=== PATIENT | female | born 1995 | race Caucasian/White ===

== ENCOUNTER 2021-08-25 08:30 | Emergency (ER) | payer SELFPAY ==
[~2021-08-25] VITALS: Ht 149.8 cm; Wt 49.8 kg
[~2021-08-25 08:30] MED LIST: AMOX500C2 PO; FERR-84 PO; LORA10TA7 PO; PNV91TAB3 PO
--- NOTE | 2021-08-25 10:33 | Diagnostic Imaging Report ---
INDICATION: Shortness of breath COMPARISON: None. FINDINGS: Frontal view of the chest demonstrates clear lungs bilaterally. The heart size is normal. There is no pneumothorax. Osseous structures are normal. IMPRESSION: No acute findings. Normal chest. Dictated by: Dictated on workstation # [id number]
--- NOTE | 2021-08-25 11:00 | ED General ---
General Chief Complaint: COVID19 Suspect/Confirmed Stated Complaint: FEVER,COUGH CHILLS,FATIGUE Nursing Triage Note: pt amb to rm 10 with complaint of fever, chills, cough, nausea that started monday. Source of Information: Patient Exam Limitations: No Limitations History of Present Illness Date Seen by Provider: Aug 25, 2021 Time Seen by Provider: 09:10 Initial Comments This 25-year-old young lady presents to the emergency room with complaints of flulike symptoms including fever, cough, chills, chest discomfort, nausea, and myalgias. She has no known COVID-19 exposures. She has not been vaccinated for COVID-19 and she denies prior infection. Allergies and Home Medications Allergies Coded Allergies: No Known Drug Allergies (Unverified , 03/18/16) Patient Home Medication List Home Medication List Reviewed: Yes Ferrous Sulfate (Iron) 325 Mg Tablet, 325 MG PO DAILY PRN for ABDOMINAL PAIN, (Reported) Entered as Reported by: MARANDA GARCIA on 09/30/16 0248 Pnv95/Ferrous Fumarate/FA ( Caplet) 1 Each Tablet, 1 EACH PO DAILY PRN for ABDOMINAL PAIN, (Reported) Entered as Reported by: MARANDA GARCIA on 09/30/16 0247 Review of Systems Review of Systems Constitutional: see HPI EENTM: no symptoms reported Respiratory: see HPI Cardiovascular: no symptoms reported Gastrointestinal: see HPI Genitourinary: no symptoms reported : No Musculoskeletal: see HPI Skin: no symptoms reported Psychiatric/Neurological: No Symptoms Reported Hematologic/Lymphatic: No Symptoms Reported Immunological/Allergic: no symptoms reported Past Cyiewya-Osklns-Ippvow Hx Patient Social History Tobacco Use?: No Use of E-Cig and/or Vaping dev: No Substance use?: No Alcohol Use?: Yes Alcohol Frequency: Once in a while Pt feels they are or have been: No Immunizations Up To Date Tetanus Booster (TDap): Less than 5yrs First/Initial COVID19 Vaccinat: no Second COVID19 Vaccination Jaya: no Seasonal Allergies Seasonal Allergies: No Past Medical History Surgeries: Yes ("Plastic plate in head") Cardiac: No Neurological: No : No Last Menstrual Period: Aug 17, 2021 Reproductive Disorders: Yes Female Reproductive Disorders: Polycystic Ovarian Dis Sexually Transmitted Disease: No HIV/AIDS: No Gastrointestinal: No Musculoskeletal: No Endocrine: No HEENT: No Cancer: No Psychosocial: Yes Depression Adverse Reaction/Blood Tranf: No Family Medical History Patient reports no known family medical history. Physical Exam Vital Signs Vital Signs - First Documented 08/25/21 08:48 Temp 37.0 Pulse 85 Resp 20 B/P (MAP) 101/69 (80) Pulse Ox 96 O2 Delivery Room Air Capillary Refill : Less Than 3 Seconds Height, Weight, BMI Height: 4'11.00" Weight: 124lbs. 4.0oz. 56.837703dl; 22.00 BMI Method:Stated General Appearance: No Apparent Distress, WD/WN HEENT: PERRL/EOMI, TMs Normal, Normal ENT Inspection, Pharynx Normal Neck: Normal Inspection Respiratory: Lungs Clear, Normal Breath Sounds, No Accessory Muscle Use, No Respiratory Distress Cardiovascular: Regular Rate, Rhythm, No Edema, No Murmur Gastrointestinal: Normal Bowel Sounds, Non Tender, Soft Extremity: Normal Inspection, No Calf Tenderness, No Pedal Edema Neurologic/Psychiatric: Alert, Oriented x3, No Motor/Sensory Deficits, Normal Mood/Affect, drawing in hand II-XII Norm as Tested Skin: Normal Color, Warm/Dry Progress/Results/Core Measures Suspected Sepsis SIRS Temperature: Pulse: 85 Respiratory Rate: 20 Blood Pressure 101 /69 Mean: 80 Results/Orders Lab Results Laboratory Tests Test 08/25/21 08:50 Range/Units Coronavirus (COVID-19)(PCR) Positive H Negative Influenza Type A Antigen NEGATIVE NEGATIVE Influenza Type B Antigen NEGATIVE NEGATIVE My Orders Orders - YANDEL RICH MD Coronavirus Sars-Cov-2 So 2019 (08/25/21 09:10) Influenza A & B Antigens (08/25/21 09:10) Chest 1 View, Ap/Pa Only (08/25/21 10:16) Vital Signs/I&O 08/25/21 08/25/21 08:48 11:15 Temp 37.0 37.0 Pulse 85 76 Resp 20 19 B/P (MAP) 101/69 (80) 105/72 Pulse Ox 96 96 O2 Delivery Room Air Room Air Capillary Refill : Less Than 3 Seconds Blood Pressure Mean: 80 Progress Note : Progress Note Vital signs are stable. Chest x-ray was unremarkable. Influenza screening was negative. Send out COVID-19 test was pending at discharge. Quarantine instructions and other instructions reviewed with patient. Departure Impression Primary Impression: Person under investigation for COVID-19 Additional Impression: Flu-like symptoms Disposition: 01 HOME, SELF-CARE Condition: Improved Departure-Patient Inst. Decision time for Depature: 10:59 Patient Instructions: COVID-19 ED, Viral Syndrome (DC) Add. Discharge Instructions: You are currently a person under investigation for COVID-19. Please remain in quarantine until the results of your COVID-19 test is known. These test results usually results in about 24 hours. For fever or discomfort you may take ibuprofen up to 400 mg every 6 hours as needed and/or Tylenol (acetaminophen) up to 650 mg every 6 hours as needed. Drink plenty of clear liquids to stay well-hydrated. Call with questions or concerns. Return to the ER if you have worsening symptoms. All discharge instructions reviewed with patient and/or family. Voiced understanding. YANDEL RICH MD Aug 25, 2021 11:00
[2021-08-25 11:15] VITALS: BP 105/72
== END 2021-08-25 11:15 | disposition home or self-care (01) ==
LOC: EDUNIT# 08:30 → ER 08:32
DX: U07.1 COVID-19 (principal)
CPT/HCPCS: 71045; 87635; 87804

== ENCOUNTER 2022-08-11 08:01 | Emergency (ER) | payer SELFPAY ==
[~2022-08-11] VITALS: Ht 150 cm; Wt 49.0 kg
[2022-08-11] MEDS ORDERED: IBUPROFEN 600 MG (MOTRIN) TAB PO ONE (08:45)
[2022-08-11 08:55] LABS: BILIRUBIN,URINE NEGATIVE (NEGATIVE); CLARITY,URINE CLOUDY; COLOR,URINE ORANGE; GLUCOSE, URINE (UA) NEGATIVE (NEGATIVE); KETONES,URINE NEGATIVE (NEGATIVE); LEUKOCYTE ESTERASE ,URINE NEGATIVE (NEGATIVE); NITRITE,URINE NEGATIVE (NEGATIVE); PROTEIN,URINE NEGATIVE (NEGATIVE)
--- NOTE | 2022-08-11 09:11 | ED GU-Female ---
General Chief Complaint: - Reproductive Stated Complaint: VAGINAL BLEEDING / CRAMPING Nursing Triage Note: pt ambulatory to room. pt states her last LMP was 07/27 and started bleeding again 1 week ago and it has not stopped. pt states she also began having lower abdomen cramping yesterday morning. pt states she was going to go to the clinic this morning, but got up and "felt faint" so she came here to get checked out instead. pt reports the abd pain "comes and goes" and is worse with movement. pt states she was diagnosed with PCOS, so she does not have regular periods and cannot say what her regular bleeding is like comparatively. pt also denies using control but does not suggest she thinks she could be . Source: patient Exam Limitations: no limitations History of Present Illness Date Seen by Provider: Aug 11, 2022 Time Seen by Provider: 08:20 Initial Comments Patient is a 26yo femal who presents to the ER with a complaint of vaginal cramping, lower abdominal pain onset yesterday. She is a - with an LMP of 07/27. states she started having more spotting which progressed to bleeding several days ago - then the onset of cramping yesterday. No concerns for STI or UTI.. no dysuria, urgency or frequency. No control. No fevers, chills, N/V. SHe states she has a history of "PCOS" and her menses are irregular. She has not taken anything for pain, No prior abdominal surgeries. All other ROS reviewed and neg except as stated. Timing/Duration: yesterday Severity/Quality: cramping Location: suprapubic Radiation: none Activities at Onset: none Sexual Lavon History: single partner Associated Symptoms: denies symptoms Allergies and Home Medications Allergies Coded Allergies: No Known Drug Allergies (Unverified , 03/18/16) Patient Home Medication List Home Medication List Reviewed: Yes Ferrous Sulfate (Iron) 325 Mg Tablet, 325 MG PO DAILY PRN for ABDOMINAL PAIN, (Reported) Entered as Reported by: MARANDA GARCIA on 09/30/16247 Pnv95/Ferrous Fumarate/FA ( Caplet) 1 Each Tablet, 1 EACH PO DAILY PRN for ABDOMINAL PAIN, (Reported) Entered as Reported by: MARANDA GARCIA on 09/30/16 3457 Review of Systems Review of Systems Constitutional: see HPI EENTM: no symptoms reported Respiratory: no symptoms reported Cardiovascular: no symptoms reported Gastrointestinal: abdominal pain Genitourinary: other (bleeding) Musculoskeletal: no symptoms reported Skin: no symptoms reported All Other Systemes Reviewed Negative Unless Noted: Yes Past Ttnbulh-Qruipf-Ebjbyt Hx Patient Social History Tobacco Use?: No Use of E-Cig and/or Vaping dev: No Substance use?: Yes Substance type: Marijuana Substance frequency: Rarely Alcohol Use?: Yes Alcohol Frequency: Rarely Immunizations Up To Date Tetanus Booster (TDap): Less than 5yrs Influenza Vaccine Up-to-Date: No; Not Current First/Initial COVID19 Vaccinat: no Second COVID19 Vaccination Jaya: no Seasonal Allergies Seasonal Allergies: No Past Medical History Surgeries: Yes ("Plastic plate in head") Cardiac: No Neurological: No Reproductive Disorders: Yes Female Reproductive Disorders: Polycystic Ovarian Dis Sexually Transmitted Disease: No HIV/AIDS: No Gastrointestinal: No Musculoskeletal: No Endocrine: No HEENT: No Cancer: No Psychosocial: Yes Depression Adverse Reaction/Blood Tranf: No Family Medical History Patient reports no known family medical history. Physical Exam Vital Signs Vital Signs - First Documented 08/11/22 08:09 Temp 36.1 Pulse 73 Resp 14 B/P (MAP) 107/63 (78) Pulse Ox 100 O2 Delivery Room Air Capillary Refill : Height, Weight, BMI Height: 4'11.00" Weight: 124lbs. 4.0oz. 56.548592zo; 21.00 BMI Method:Stated General Appearance: WD/WN, no apparent distress HEENT: PERRL/EOMI Cardiovascular: regular rate, rhythm Respiratory: lungs clear, normal breath sounds, no respiratory distress, no accessory muscle use Gastrointestinal: soft; No abnormal bowel sounds, No guarding, No rebound; tenderness (mild suprapubic tenderness and bilat LQ tenderness to palpation) Extremities: normal range of motion, non-tender, normal inspection, no pedal edema, normal capillary refill Neurologic/Psychiatric: alert, normal mood/affect, oriented x 3 Skin: normal color, warm/dry Progress/Results/Core Measures Suspected Sepsis SIRS Temperature: Pulse: 73 Respiratory Rate: 14 Laboratory Tests 08/11/22 09:11: White Blood Count 8.9 Blood Pressure 107 /63 Mean: 78 Laboratory Tests 08/11/22 09:11: Platelet Count 151 Results/Orders Lab Results Laboratory Tests Test 08/11/22 08:51 08/11/22 09:11 Range/Units Urine Color ORANGE Urine Clarity CLOUDY Urine pH 6.0 5-9 Urine Specific [place] >=1.030 1.016-1.022 Urine Protein NEGATIVE NEGATIVE Urine Glucose (UA) NEGATIVE NEGATIVE Urine Ketones NEGATIVE NEGATIVE Urine Nitrite NEGATIVE NEGATIVE Urine Bilirubin NEGATIVE NEGATIVE Urine Urobilinogen 0.2 < = 1.0 MG/DL Urine Leukocyte Esterase NEGATIVE NEGATIVE Urine RBC (Auto) NEGATIVE NEGATIVE Urine RBC NONE /HPF Urine WBC NONE /HPF Urine Squamous Epithelial Cells 2-5 /HPF Urine Crystals NONE /LPF Urine Bacteria FEW H /HPF Urine Casts NONE /LPF Urine Mucus SMALL H /LPF Urine Culture Indicated NO White Blood Count 8.9 4.3-11.0 10^3/uL Red Blood Count 3.76 L 3.80-5.11 10^6/uL Hemoglobin 12.1 11.5-16.0 g/dL Hematocrit 35 35-52 % Mean Corpuscular Volume 93 80-99 fL Mean Corpuscular Hemoglobin 32 25-34 pg Mean Corpuscular Hemoglobin Concent 35 32-36 g/dL Red Cell Distribution Width 11.1 10.0-14.5 % Platelet Count 151 130-400 10^3/uL Mean Platelet Volume 9.8 9.0-12.2 fL Immature Granulocyte % (Auto) 0 % Neutrophils (%) (Auto) 66 42-75 % Lymphocytes (%) (Auto) 27 12-44 % Monocytes (%) (Auto) 5 0-12 % Eosinophils (%) (Auto) 2 0-10 % Basophils (%) (Auto) 1 0-10 % Neutrophils # (Auto) 5.3 1.8-7.8 10^3/uL Lymphocytes # (Auto) 2.2 1.0-4.0 10^3/uL Monocytes # (Auto) 0.4 0.0-1.0 10^3/uL Eosinophils # (Auto) 0.2 0.0-0.3 10^3/uL Basophils # (Auto) 0.0 0.0-0.1 10^3/uL Immature Granulocyte # (Auto) 0.0 0.0-0.1 10^3/uL Human Chorionic Gonadotropin, Quant 2807 H <5 MIU/ML My Orders Orders - NEFTALY BRUMFIELD MD Ua Culture If Indicated (08/11/22 08:31) Urine Bedside (08/11/22 08:31) Abo Rh Type (08/11/22 08:53) Cbc With Automated Diff (08/11/22 08:53) Hcg,Quantitative (08/11/22 08:53) Acetaminophen Tablet (Tylenol Tablet) (08/11/22 10:30) Us Ob<14 Wks Sngle W/Transvag (08/11/22 10:20) Medications Given in ED Current Medications Medications Dose Ordered Sig/Kirill Route Start Time Stop Time Status Last Admin Dose Admin Acetaminophen 1,000 mg ONCE ONCE PO 08/11/22 10:30 08/11/22 10:31 DC 08/11/22 10:49 1,000 MG Vital Signs/I&O 08/11/22 08:09 Temp 36.1 Pulse 73 Resp 14 B/P (MAP) 107/63 (78) Pulse Ox 100 O2 Delivery Room Air Capillary Refill : Blood Pressure Mean: 78 Progress Note #1: Time: 09:11 Progress Note notified by Rima (surgical technologist) bedside urine test - positive Progress Note #2: Time: 11:12 Progress Note Case discussed with Dr Lopez with OB - he states her quant still falls below the level of the discrimminatory zone to rule out ectopic . He relies on a level between 3663-7869 for TVUS and about 10,000 for TAUS. Her vital signs are stable. Her Hgb is normal. Her pain is not severe. He recommends discharge to home with strict return precautions and repeat quant in 48 hours. I have strongly encouraged her to be vigilant about follow up and I have delineated the risks of delay in care, including risks to future fertility, morbidity and . HOme with oral fluids, tylenol and an order for out patient repeat HCG Departure Communication (Admissions) Time/Spoke to Consulting Phy: 11:[address] Lopez Impression Primary Impression: Vaginal bleeding affecting early Disposition: HOME, SELF-CARE Condition: Stable Departure-Patient Inst. Decision time for Depature: 11:16 Referrals: [facility] (PCP/Family) Primary Care Physician Patient Instructions: Bleeding in Early ED Add. Discharge Instructions: You need to come back to the hospital on MONDAY to have a repeat quantitative hormone level checked at the lab. Call [facility] today and for a follow up appointment on Monday - they can review the hormone level with you to determine next steps. you may have to have the hormone level check a 3rd time. If you develop worsening vaginal bleeding, especially with significantly increased pain, please come back to the Emergency Department for re-evaluation. Drink plenty of fluids to stay well hydrated. Extra strength Tyenol, 2 tablets every 6 hours for cramps. Work/School Note: Work Release Form Date Seen in the Emergency Department: Aug 11, 2022 Return to Work: Aug 14, 2022 Copy Copies To 1: SOHAIL DUBOSE KATHRYN M MD Aug 11, 2022 09:11
[2022-08-11 09:14] LABS: BACTERIA,URINE FEW /HPF
[2022-08-11 09:36] LABS: BASOPHILS % (AUTO) 1 % (0-10); EOSINOPHILS # (AUTO) 0.2 10^3/uL (0.0-0.3); EOSINOPHILS % (AUTO) 2 % (0-10); LYMPHOCYTES # (AUTO) 2.2 10^3/uL (1.0-4.0); LYMPHOCYTES % (AUTO) 27 % (12-44); MEAN CORPUSCULAR HGB CONC 35 g/dL (32-36); MEAN CORPUSCULAR VOLUME 93 fL (80-99); MEAN PLATELET VOLUME 9.8 fL (9.0-12.2); MONOCYTES # (AUTO) 0.4 10^3/uL (0.0-1.0); MONOCYTES % (AUTO) 5 % (0-12); NEUTROPHILS # (AUTO) 5.3 10^3/uL (1.8-7.8); NEUTROPHILS % (AUTO) 66 % (42-75); WHITE BLOOD COUNT 8.9 10^3/uL (4.3-11.0)
[2022-08-11 09:37] LABS: HEMATOCRIT 35 % (35-52); HEMOGLOBIN 12.1 g/dL (11.5-16.0); MEAN CORPUSCULAR HEMOGLOBIN 32 pg (25-34); PLATELET COUNT 151 10^3/uL (130-400)
[2022-08-11] MEDS ORDERED: ACETAMINOPHEN 500 MG TAB (TYLENOL) PO ONE (10:30)
--- NOTE | 2022-08-11 11:47 | Diagnostic Imaging Report ---
EXAM: First Trimester Ultrasound INDICATIONS: Age by LMP is 2 weeks, 6 days. TECHNIQUE: The pelvis was scanned using transabdominal and endovaginal technique. COMPARISON: None. FINDINGS: The uterus is anteverted and measures 6.9 x 3.7 x 5.1. No visualized intrauterine gestational sac or yolk sac. Endometrium is normal in thickness measuring up to 0.4 cm. Both ovaries were identified and appear normal. The left measures 3.3 x 2.1 x 2.7 cm, and the right 3.5 x 2.3 x 2.6 cm. No abnormal adnexal masses. Trace free fluid. IMPRESSION: No visualized intrauterine gestational sac. Findings can be seen with early, failed, or nonvisualized ectopic . Recommend continued correlation with beta hCG and follow-up with ultrasound, as clinically indicated. Dictated by: Dictated on workstation # [id number]
[2022-08-11 11:54] VITALS: BP 97/67
== END 2022-08-11 11:54 | disposition home or self-care (01) ==
LOC: EDUNIT# 08:01 → ER 08:02
DX: O20.9 Hemorrhage in early pregnancy, unspecified (principal); Z3A.00 Weeks of gestation of pregnancy not specified; Z28.310 Unvaccinated for COVID-19
CPT/HCPCS: 36415; 76801; 76817; 81000; 84702; 84703; 85025; 86900; 86901

== ENCOUNTER → 2022-08-13 | Outpatient (CLI) | payer SELFPAY | LOC: LAB 09:37 | PROVIDERS: ATTEND Emergency Medicine | DX: O26.859 Spotting complicating pregnancy, unspecified trimester (principal); Z3A.00 Weeks of gestation of pregnancy not specified | CPT/HCPCS: 36415; 84702 ==